=== PATIENT | female | born 1950 | race American Indian/Alaskan Native ===

== ENCOUNTER 2018-01-03 17:52 | Emergency (ER) | payer MEDICARE, OTHER ==
--- NOTE | 2018-01-03 23:26 | Emergency Department Report ---
ED Rash HPI - HPI Chief Complaint: Skin Rash Stated Complaint: RASH Duration: 3 Days Location: Head, Neck Suspected Cause: Unknown Rash Symptoms: Yes Blistering, Yes Malaise, No Itching (burning), No Facial Swelling, No Tongue/Oral Swelling, No Breathing Difficulties, No Choking Sensation, No Wheezing/Dyspnea, No Peeling, No Fever, No Lightheaded, No Myalgias Severity: moderate Other History: 67-year-old -[place] female comes in complaining of a rash to the left side of her neck and nape of her left side of here. Patient reports she did not get her shingles vaccination. She reports that it is burning and painful. She has a past medical history hypothyroidism and hypertension. Reports no known drug allergies. ED Review of Systems ROS: Stated complaint: RASH Other details as noted in HPI Skin: rash Neurological: headache ED Past Medical Hx - Past Medical History Hx Hypertension: Yes Hx Diabetes: Yes - Surgical History Hx Breast Surgery: Yes (Right) Additional Surgical History: Hysterectomy 2014--Thyroidectomy 1982 - Social History Smoking Status: Former Smoker Substance Use Type: None - Medications Home Medications: Home Medications Medication Instructions Recorded Confirmed Last Taken Type traMADol [Ultram 50 MG tab] 50 mg PO Q4HR PRN #20 tablet 05/11/16 06/08/1606/07 Rx Levothyroxine (Nf) [Synthroid (Nf)] 250 mcg PO QAM 06/08/16 06/08/16 06/07/16 History amLODIPine [Norvasc] 10 mg PO DAILY 06/08/16 06/08/16 06/07/16 History metFORMIN [Glucophage] 500 mg PO QDAY 06/08/16 06/08/16 06/07/16 History ALBUTEROL Inhaler [ProAir HFA 2 puff IH QID PRN 30 Days 06/09/16 Unknown Rx Inhaler] inhalation Azithromycin [Zithromax TAB] 500 mg PO QDAY #3 tablet 06/09/16 Unknown Rx Budesoni/Formotero 160-4.5(Nf) 2 puff IH BID 30 Days inha 06/09/16 Unknown Rx [Symbicort 160-4.5 (Nf)] Gabapentin 600 mg PO BID 06/09/16 06/09/16 2 Days Ago History ~06/07/16 Prednisone [predniSONE 5 mg (6-Day 5 mg PO .TAPER #1 tab.ds.pk 06/09/16 Unknown Rx Pack, 21 Tabs)] Acyclovir 800 mg PO 5XD #50 tablet 01/03/18 Unknown Rx Gabapentin [Neurontin] 300 mg PO BID #20 cap 01/03/18 Unknown Rx traMADol [Ultram 50 MG tab] 50 mg PO Q6HR PRN #20 tablet 01/03/18 Unknown Rx Rash Exam - Exam General: Vital signs noted. No distress. Alert and acting appropriately. HEENT: No Periorbital Edema, No Conjuctival Injection, No Chemosis, No Perioral Edema, No Tongue Edema, No Uvular Edema, No Compromised Airway, No Drooling Lungs: Yes Good Air Exchange (Normal Breath Sounds), No Wheezes, No Ronchi, No Stridor, No Cough, No Labored Respirations, No Retractions, No Use of Accessory Muscles, No Other Abnormal Lung Sounds Heart: Yes Regular, No Murmur Skin: Yes Other (group vesicular lesions with an erythematous base on the left neck and nape of the hairline on the left side.) Other: Positive: Abdomen Normal, Neurologic Normal, Musculoskeletal Normal ED Course Vital Signs 01/03/18 18:19 Temperature 98.6 F Pulse Rate 91 H Respiratory 18 Rate Blood Pressure 144/82 O2 Sat by Pulse 96 Oximetry ED Medical Decision Making - Medical Decision Making Patient has been evaluated by this provider in fast track. Patient appears to have a vesicular group vessel lesions that appear to be shingles. Discussed the patient we will place her on acyclovir 800 mg 5 times a day for the next 10 days. Discussed the patient I will refill her gabapentin at 300 mg by mouth twice a day as well as tramadol if the milligrams every 6 hours when necessary for pain.. Discussed with patient that she needs to inform her primary care provider that she has an outbreak of shingles so she can be followed up. Discussed the patient she will need to have a shingles vaccination that can be given to her by her primary care provider. 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 Patient verbalizes understanding. Critical care attestation.: If time is entered above; I have spent that time in minutes in the direct care of this critically ill patient, excluding procedure time. ED Disposition Clinical Impression: Herpes zoster Qualifiers: Herpes zoster complications: without complications Qualified Code(s): B02.9 - Zoster without complications Disposition: DC-01 TO HOME OR SELFCARE Is pt being admited?: No Does the pt Need Aspirin: No Condition: Stable Instructions: Herpes Zoster (ED) Additional Instructions: Please take medication as prescribed. Please do not operate heavy machinery while taking tramadol and gabapentin. Please follow up with her primary care provider if symptoms persist or gets worse. Prescriptions: Acyclovir 800 mg PO 5XD #50 tablet Gabapentin [Neurontin] 300 mg PO BID #20 cap traMADol [Ultram 50 MG tab] 50 mg PO Q6HR PRN #20 tablet PRN Reason: Pain Referrals: PRIMARY CARE, [Primary Care Provider] - 3-5 Days
[2018-01-03 23:42] VITALS: BP 147/82
== END 2018-01-03 23:42 | disposition home or self-care (01) ==
LOC: ED 17:52
DX: B02.9 Zoster without complications (principal); I10 Essential (primary) hypertension; E11.9 Type 2 diabetes mellitus without complications; Z90.710 Acquired absence of both cervix and uterus; Z87.891 Personal history of nicotine dependence
CPT/HCPCS: 99282